=== PATIENT | male | born 1990 | race Two or more races ===

== ENCOUNTER → 2024-04-04 | Outpatient (CLI) | payer BC, SELFPAY ==
[2024-04-04 11:54] LABS: Cardiac Risk Estimate 4.4 RATIO (4.0-6.7); Cholesterol 211 mg/dL (132-200); HDL Cholesterol 48 mg/dL (40-60); LDL Cholesterol,Calculated 136 mg/dL (0-130); Triglycerides 137 mg/dL (30-150)
[2024-04-04 11:56] LABS: Vitamin D 25 Hydroxy Total 22.4 ng/mL (7.3-40.2)
== END | disposition home or self-care (01) ==
LOC: COPL 10:23
PROVIDERS: PCP Nurse Practitioner Family; Referring Provider Nurse Practitioner Family; Visit Provider Nurse Practitioner Family
DX: E78.5 Hyperlipidemia, unspecified (principal); E55.9 Vitamin D deficiency, unspecified
CPT/HCPCS: 36415; 80061; 82306

== ENCOUNTER → 2024-10-04 | Outpatient (CLI) | payer BC, SELFPAY ==
[2024-10-04 17:50] LABS: Cardiac Risk Estimate 6.2 RATIO (4.0-6.7); Cholesterol 262 mg/dL (132-200); HDL Cholesterol 42 mg/dL (40-60); LDL Cholesterol,Calculated 172 mg/dL (0-130); Triglycerides 239 mg/dL (30-150)
[2024-10-04 17:54] LABS: Vitamin D 25 Hydroxy Total 38.7 ng/mL (7.3-40.2)
== END | disposition home or self-care (01) ==
PROVIDERS: PCP Nurse Practitioner Family; Referring Provider Nurse Practitioner Family; Visit Provider Nurse Practitioner Family
DX: E55.9 Vitamin D deficiency, unspecified (principal); E78.5 Hyperlipidemia, unspecified
CPT/HCPCS: 36415; 80061; 82306